=== PATIENT | male | born 2005 | race Two or more races ===

== ENCOUNTER 2024-02-24 14:41 | Emergency (ER) | payer OTHER ==
[2024-02-24 14:53] VITALS: BP 118/64; PULSE 82; RESP 20; TEMP 97.7; BMI 22.1
[2024-02-24] MEDS: KETOROLAC TROMETHAMINE 30 MG/1 ML VIAL IM ONE (16:27)
[2024-02-24] MEDS ORDERED: KETOROLAC TROMETHAMINE 30 MG/1 ML VIAL ONE (16:28)
== END 2024-02-24 17:03 | disposition home or self-care (01) ==
LOC: JERFT 14:41
PROC: 3E0133Z Introduction of Anti-inflammatory into Subcutaneous Tissue, Percutaneous Approach (ICD-10-PCS; principal; 2024-02-24)
DX: G25.81 Restless legs syndrome (principal); M79.604 Pain in right leg; M79.605 Pain in left leg; R20.2 Paresthesia of skin
CPT/HCPCS: 99284-25

== ENCOUNTER 2024-04-05 13:23 | Emergency (ER) | payer SELFPAY ==
[2024-04-05 13:30] VITALS: BP 112/73; PULSE 87; RESP 20; TEMP 98.5; BMI 23.8
[2024-04-05] MEDS ORDERED: GABAPENTIN 300 MG CAPSULE ONE (13:59)
[2024-04-05] MEDS ORDERED: KETOROLAC TROMETHAMINE 30 MG/1 ML VIAL ONE (13:59)
[2024-04-05] MEDS: KETOROLAC TROMETHAMINE 30 MG/1 ML VIAL IM ONE (14:07)
[2024-04-05] MEDS: GABAPENTIN 300 MG CAPSULE PO ONE (14:07)
== END 2024-04-05 14:16 | disposition home or self-care (01) ==
LOC: JERFT 13:23
PROC: 3E0233Z Introduction of Anti-inflammatory into Muscle, Percutaneous Approach (ICD-10-PCS; principal; 2024-04-05)
DX: G25.81 Restless legs syndrome (principal)
CPT/HCPCS: 99284-25